=== PATIENT | female | born 1990 | race Caucasian/White ===

== ENCOUNTER 2016-10-03 18:44 | Emergency (ER) | payer MEDICAID ==
[~2016-10-03] VITALS: Ht 165.1 cm; Wt 69.5 kg
[2016-10-03 18:52] VITALS: Ht 165.1 cm; Wt 69.5 kg
--- NOTE | 2016-10-03 20:15 | ERD ---
ER Documentation Chief Complaint Date/Time DATE: 10/03/16 TIME: 20:13 Chief Complaint lower abd pain x 1 week. states "tampon got stuck" HPI Patient is a 26-year-old female who presents to the emergency department with lower abdominal pain 1 week. Patient states that she was on her menstrual period 1 week ago. Patient reports having a "tampon stuck in her." Patient reports intermittent fevers. Patient states her last fever was 100.3 Fahrenheit yesterday. Patient took Tylenol which did alleviate her temperature intermittently. Patient also complaining of vaginal discharge. She states that her discharge is white brown in color. Patient denies any excessive bleeding. Patient denies any nausea, vomiting, pain with urination, blood in her urine, rashes or loss of consciousness. ROS All systems reviewed and are negative except as per history of present illness. Medications Home Meds Active Scripts Amoxicillin/Potassium Clav (Amox-Clav 875-125 mg Tablet) 875-125 mg Tab, 1 TAB PO BID for 10 Days, #20 TAB Prov:DAMON ALVARADO PA-C 10/03/16 Allergies Allergies: Coded Allergies: No Known Allergy (Verified , 10/03/16) PMhx/Soc History of Surgery: No Anesthesia Reaction: No Hx Neurological Disorder: No Hx Respiratory Disorders: No Hx Cardiac Disorders: No Hx Psychiatric Problems: No Hx Miscellaneous Medical Probl: No Hx Alcohol Use: No Hx Substance Use: No Hx Tobacco Use: No Smoking Status: Never smoker FmHx Family History: No diabetes Physical Exam Vitals Vital Signs Date Time Temp Pulse Resp B/P Pulse Ox O2 Delivery O2 Flow Rate FiO2 10/03/16 21:35 98.3 78 20 120/70 99 10/03/16 18:52 98.3 84 20 135/68 99 Physical Exam GENERAL: Well-developed, well-nourished male. Appears in no acute distress. HEAD: Normocephalic, atraumatic. EYES: Pupils are equally reactive bilaterally. EOMs grossly intact. No conjunctival erythema. ENT: Moist mucous membranes. No uvula deviation. No kissing tonsils. NECK: Supple. No lymphadenopathy or thyromegaly. No meningismus. LUNG: Clear to auscultation bilaterally. No rhonchi, wheezing, rales or coarse breath sounds. HEART: Regular rate and rhythm. No murmurs, rubs or gallops. ABDOMEN: No scars, ecchymosis or rashes noted. Soft and nondistended. Tender to palpation in the suprapubic region. Positive bowel sounds in all four quadrants. No rebound tenderness, no guarding. (-) McBurneys point tenderness. No CVA tenderness. BACK: No midline tenderness. FEMALE GENITALIA: Exam was completed with a female code and test clerk present. Normal external female genitalia. Blood-tinged, white thick discharge noted in vaginal vault. Using speculum, tampon was visualized. It was fully removed using sterile forceps. Cervix visualized following tampon removal, with white discharge. No cervical motion tenderness. EXTREMITIES: Equal pulses bilaterally. No peripheral clubbing, cyanosis or edema. No unilateral leg swelling. NEUROLOGIC: Alert and oriented. Moving all four extremities without any difficulty. Normal speech. Steady gait. SKIN: Normal color. Warm and dry. No rashes or lesions. Results 24 hrs Laboratory Tests Test 10/03/16 20:43 Bedside Urine Blood Trace-lysed Bedside Urine Glucose (UA) Negative Bedside Urine Ketones (LAB) Negative Bedside Urine Leukocyte Esterase (L Negative Bedside Urine Nitrite (LAB) Negative Bedside Urine Protein (LAB) Negative Bedside Urine pH (LAB) 7.0 Procedures/MDM ED COURSE: The patient was stable throughout ED course. I kept the patient and/or family informed of laboratory and diagnostic imaging results throughout the ED course. MEDICAL DECISION MAKING: This is a 26-year-old female who presents with lower abdominal pain 1 week. She reported having a "tampon" foreign body x 1 week. Vital signs were reviewed. Patient was afebrile. Urine test was negative. Urine dip was negative for acute infection. Vaginal examination revealed retained foreign body. Tampon was fully removed without any difficulty. Given these findings, the patients presentation is most consistent with removal of vaginal foreign body. I have a much lower clinical concern for , ectopic , ovarian torsion, PID, tubo-ovarian abscess, vulvovaginitis, pyelonephritis, UTI, PID, STDs. Low suspicion for toxic shock syndrome, however I will empirically treat the patient with antibiotics at this time. Patient advised to complete full course of antibiotics. PRESCRIPTIONS: Augmentin DISCHARGE: At this time, patient is stable for discharge and outpatient management. I have instructed the patient to follow-up with his/her primary care physician in 1-2 days. I have discussed with the patient the possibility of needing to see a specialist for further workup and diagnostic studies if the pain persists. I have instructed the patient to promptly return to the ER at any time for any new or worsening symptoms including increased pain, nausea, vomiting, vaginal bleeding, weakness or fever. The patient and/or family expressed understanding of and agreement with this plan. All questions were answered. Home care instructions were provided. Departure Diagnosis: Primary Impression: Vaginal foreign body Encounter type: initial encounter Qualified Code: T19.2XXA - Vaginal foreign body, initial encounter Additional Impression: History of retained foreign body fully removed Condition: Stable Patient Instructions: Vaginal Foreign Body, Removed (Adult) Referrals: [facility] () [facility] () [facility] REFERRAL LIST Additional Instructions: Take full course of antibiotics. Follow up with your OBGYN in 1-2 days. Return to the emergency department for any new or worsening symptoms including pain, fever, chills, nausea, vomiting, rashes, loss of consciousness. DAMON ALVARADO PA-C Oct 03, 2016 20:15
[2016-10-03 20:41] LABS: URINE BLOOD (Dip) POC Trace-lysed (NEGATIVE)
[2016-10-03] MEDS ORDERED: AMOX1TAB10 PO (21:02)
[2016-10-03 21:35] VITALS: BP 120/70; PULSE 78; RESP 20; TEMP 98.3
== END 2016-10-03 21:38 | disposition home or self-care (01) ==
LOC: FTE 18:44
DX: T19.2XXA Foreign body in vulva and vagina, initial encounter (principal); R10.2 Pelvic and perineal pain; X58.XXXA Exposure to other specified factors, initial encounter; Y92.9 Unspecified place or not applicable; Z87.821 Personal history of retained foreign body fully removed
CPT/HCPCS: 81003